=== PATIENT | male | born 1995 | race Caucasian/White ===

== ENCOUNTER 2019-07-15 11:03 | Day surgery (SDC) | payer MEDICAID ==
[~2019-07-15 11:03] MED LIST: BUPIVACAINE /PF 0.25% 30 ML VIAL INJ ONE; IOHEXOL 300 mgI/mL, 50 mL INFUS..BTL IV ONE; LIDOCAINE 2%, 20 ML MDV ONE; methylPREDNISolone ACETATE 40 MG/ML ONE
[2019-07-15] MEDS ORDERED: DIPHENHYDRAMINE INJ 50 MG/ML VIAL ONE (11:48)
[2019-07-15] MEDS ORDERED: MIDAZOLAM HCL 5 MG/5 ML VIAL ONE (11:48)
[2019-07-15 12:40] VITALS: BP_SYST 122
== END 2019-07-15 12:40 | disposition home or self-care (01) ==
LOC: SDS 11:03
PROVIDERS: ATTEND Internal Medicine
DX: M51.9 Unspecified thoracic, thoracolumbar and lumbosacral intervertebral disc disorder (principal); M47.26 Other spondylosis with radiculopathy, lumbar region; M51.16 Intervertebral disc disorders with radiculopathy, lumbar region; M53.3 Sacrococcygeal disorders, not elsewhere classified; G89.29 Other chronic pain
CPT/HCPCS: 62323; J1030; J2001; J2250; J3490; J7120; Q9967; 76000; J1200

== ENCOUNTER 2019-10-31 08:24 | Day surgery (SDC) | payer MEDICAID ==
[2019-10-31] MEDS ORDERED: DIPHENHYDRAMINE INJ 50 MG/ML VIAL ONE (09:19)
[2019-10-31] MEDS: MIDAZOLAM HCL 5 MG/5 ML VIAL ONE ×2 (10:13→10:17)
[2019-10-31 11:15] VITALS: BP_SYST 114
== END 2019-10-31 11:10 | disposition home or self-care (01) ==
LOC: SMU 08:24 → SDS 08:24
PROVIDERS: ATTEND Internal Medicine
DX: M51.16 Intervertebral disc disorders with radiculopathy, lumbar region (principal); M47.26 Other spondylosis with radiculopathy, lumbar region; G89.4 Chronic pain syndrome; M53.3 Sacrococcygeal disorders, not elsewhere classified; Z79.899 Other long term (current) drug therapy
CPT/HCPCS: 62323; J1200; J2250; 76000